=== PATIENT | male | born 1985 | race Two or more races ===

== ENCOUNTER 2021-08-27 09:30 | Outpatient (AMB) | payer BC, MEDICAID, SELFPAY ==
--- NOTE | 2021-08-27 09:30 | AM.PHNO ---
Nursing Note Dietitian Note: Appointment type: Palliative Care interdisciplinary team meeting follow up: Appointment: 08/27/21 9:30 am. Current stated weight: 222 lbs, reflect weight loss of 3 lbs x1 month. height: 6'7 . BMI:25.2 kg/mm, reflect normal weight status. Patient Myles reports he received all the nutrition information he needs from previous appointment. He has good appetite (normal). No N/V, No constipation or diarrhea. Patient continue taking Calcium and vitamin D. No nutrition concern at this time. Dietitian available prn. *CWC Office Visit complete CWC Offive Visit Complete CWC Visit Complete?: No
--- NOTE | 2021-08-27 09:30 | CWCCLINC_ITS ---
Review of Systems [facility] [place] Comments: Sensitivity/discomfort to bottom of feet Swelling/discomfort below knee Skin/Breast Comments: Peeling radiation burn Hair growing back Psych Comments: Irritation at times with children Exam Const General: cooperative and no acute distress Orientation: alert Limitations: language barrier Neuro General: patient alert Cognition: normal cognition Speech: speech normal Psych Mental Status: mental status grossly normal Mood: congruent mood Affect: normal affect Speech and Movement: speech clear Attitude: cooperative Thought Process: normal Thought Content: normal Judgment: judgment good Supplemental Info Assessment & Plan: 1. Pain. Mild to plantar surfaces and below knee at tumor site. Patient prefers not to treat. Monitor. Consider further evaluation and management of non- pharmacologic interventions. 2. Medication reconciliation. Complete. 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 Translation provided by AMAIRANI Mancini. Patient declined to participated with ELBA Wilson, during this encounter as all his nutritional support needs had been previously met by her. Patient stated he completed XRT last month and had a sunburn-like area to the skin of his leg which is now brown and peeling, but he was told by Dr. Masterson that this was normal. He is moisturizing with CeraVe. He is to start immunotherapy every 2 weeks x [address] Freitas in [place] starting Monday. He reports a 3/10 discomfort and sensitivity to the bottom of his feet when walking. He also report swelling and discomfort below the knee where the tumor is, exacerbated when standing. His hair is growing back. He reports normal appetite, energy and bowels. Objective Height: 2.01 m Weight: 100.698 kg Medication and Supplements Medication and Supplements: Vitamin D and Calcium Liquid 1 oz QD Patients Motivation/Goals Patients Motivation/Goals: Preference is to not take medications. Comments Additional Comments: PCP Dr. Perez Preferred Pharmacy [facility] Rx Coverage [facility] *CWC Office Visit complete CWC Offive Visit Complete CWC Visit Complete?: No
--- NOTE | 2021-08-27 09:36 | AM.PHNO ---
Documented by User: Katie Wolfe RD 08/27/21 09:54 Nursing Note Dietitian Note: Appointment type: Palliative Care interdisciplinary team meeting follow up: Appointment: 08/27/21 9:30 am. Current stated weight: 222 lbs, reflect weight loss of 3 lbs x1 month. height: 6'7 . BMI:25.2 kg/mm, reflect normal weight status. Patient Myles reports he received all the nutrition information he needs from previous appointment. He has good appetite (normal). No N/V, No constipation or diarrhea. Patient continue taking Calcium and vitamin D. No nutrition concern at this time. Dietitian available prn. *CWC Office Visit complete CWC Offive Visit Complete CWC Visit Complete?: No
[2021-08-27 09:50] VITALS: BMI 25.0
--- NOTE | 2021-08-27 09:50 | PR.OPPALCARP ---
Vital Signs 08/27/21 09:50 Height 2.01 m Height Method Stated Weight 100.698 kg Weight Measurement Method Stated by Patient BMI 25.0 Oxygen Delivery Method Room Air OP Palliative Care CWC Phone Triage Assessment Plan/Follow-up Plan: Continue to monitor; Call in 2 weeks to follow up on start of new chemo CWC Palliative Care Assessment Appointment Visit Date: 08/27/21 Inital Appointment: Follow up Appointment by phone IDT Team Members: Dietitian (Katie Wolfe (quick check in; patient has no needs at this time)), Doctor (Dr. Masterson), Nursing, Phramacist (Rose Zelaya) and [place] Brushing Machine Operator (Addis Cox) Language Spoken: Critical Power Technician Name: Addis oCx certified shipping manager Personal/Provider information List Name, Facility and location of PCP: Dr. 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 Current Treatment [facility] Current Treatment: IV Chemo (at [facility]) Current treatment schedule: on08/31/2021; Chemo on Tuesdays then return on Wednesdays then 2 week break Ambulation [facility] Ambulation: No assistance Pain Pain Present: Pain Reported Pain Intensity: 3 Pain Description: With Movement and Unable to Descibe (discomfort; sensitive to bottom of feet; uncomfortable under right knee) Neurological Neurological WNL: Yes HEENT HEENT WNL: Yes Cardiovascular Cardiovascular WNL: Yes Respiratory Respiratory WNL: Yes Gastrointestional Gastrointestinal: Yes Date of Last Bowel Movement: 08/26/21 Appetite: 100% Nausea: None Vomiting: None Genitourinary Genitourinary WNL: Yes Integumentary Integumentary WNL: No Skin Problems: Rash (on occasion on legs; uses Cerave) Skin Location: on legs Musculoskelatal Musculosketal WNL: No Symptoms: Joint Pain (leg pain due to tumor) Psych/Social Psych/Social WNL: Yes Behavior: Cooperative Mood: Normal Anxiety Level: None Depression Level: None Sleep: Quite a bit Energy: Quite a bit Judgement: Good Prognosis Prognosis: Good Goal of Care: Curative and Life Prolonging Palliative Performance Scale Palliative Performance Scale: Fully Ambulatory/May or may not be Symptomatic Issues: pain/discomfort; rash at times on leg; no major issues to report Plan: Continue to monitor; Call in 2 weeks to follow up on start of new chemo List Name, Facility and location of PCP: [facility] Prognosis: Good List Name, Facility and location of PCP: [facility] Prognosis: Good List Name, Facility and location of PCP: [facility] Diagnosis 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
--- NOTE | 2021-08-27 12:52 | CWCCLINC_ITS ---
[facility] Social Work Assessment Intake Visit Date: 08/27/21 Referral Source: Follow-Up Visit Structural Steel Painter: Yes (For Dietition, Pharmacist, and assessment manager. ) Name of Structural Steel Painter: Addis Cox LCSW List Name, Facility and location of PCP: Dr. 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 ) Patient housing status: House Living situation comments: Patient lives with his and children ages 8, 6, and 4. Support system: Good ADL's Getting dressed: Yes Personal Hygiene: Yes Feeding: Yes Ambulate: Yes Continence management: Yes Prepare meals: Yes Transportation: Yes supervisor residential: Yes Manage medications: Yes Manage finances: Yes Patient has the following @ home: None Ambulation ability: Ambulates independently Cognitive/Emotional Status Mental status: Alert (Patient was alert and oriented. ) Judgement: Good Emotional status: Normal Coping status: Coping well Learning needs: Motivational Additional comments: Assessed patient?s mood. Patient reported a good mood. Patient appeared to have no disturbances to his mood. Patient reported he does not think about his disease he just does what the doctors recommend and does what he needs to do to be better. Patient reported last results he received indicated that there was no progression of his cancer and no changes as well, which, was good to hear it has not progressed. Patient reported he could get irritable or be inpatient at times since he does have an 8, 6, and 4 year old but did not report anything major. Recommended he take a break and go into a room take Deep Breaths and count to 10 then go back. Patient reported he engages in cleaning his home, washing his cars, watches T.V., and goes out where there is small crowds to distract himself. He reported no SI and HI. Patient reported no need for community resources. Patient reporting no distressing symptoms, issues, or needs. Advanced Care planning Advacned care plan discussed: No Social Service Decision Making Status: Makes Own Decisions Primary Decision Maker: Sarojtriston Perry, Anticipated needs [place] Supervisor Patient Concerns: No Concerns
== END 2021-08-27 10:05 | disposition home or self-care (01) ==
LOC: HODCWC 09:40
PROVIDERS: Visit Provider Radiology Therapeutic Radiology
DX: Z51.5 Encounter for palliative care (principal)

== ENCOUNTER → 2025-05-20 | Outpatient (CLI) | payer BC, MEDICAID, SELFPAY ==
[2025-05-20 09:33] LABS: Collection Type, Urine Catheter
[2025-05-20 10:42] LABS: Basophils # (Auto) 0.0 Thou/mm3 (0.0-0.2); Basophils % (Auto) 0 % (0-2.5); Eosinophils # (Auto) 0.4 Thou/mm3 (0.0-0.5); Eosinophils % (Auto) 2 % (0-10); Hematocrit 42.2 % (41.0-53.0); Hemoglobin 14.2 g/dL (13.5-16.0); Immature Granulocytes Auto 0.24 Thou/mm3 (0.00-0.00); Lymphocytes # (Auto) 1.1 Thou/mm3 (1.0-4.8); Lymphocytes % (Auto) 7 % (10-50); Mean Corpuscular HGB Conc 33.6 g/dl (31.0-37.0); Mean Corpuscular Hemoglobin 32.9 pg (25.0-35.0); Mean Corpuscular Volume 98 fL (80-100); Monocytes # (Auto) 1.4 Thou/mm3 (0.0-0.8); Monocytes % (Auto) 9 % (0-12); Neutrophils # (Auto) 12.8 Thou/mm3 (1.8-7.7); Neutrophils % (Auto) 81 % (37-80); Nucleated Red Blood Cell # 0.00 Thou/mm3 (0.00-0.00); Nucleated Red Blood Cell % 0 /100 WBC (0); Platelet Count 168 Thou/mm3 (140-440); RDW Standard Deviation 46.8 fL (35.1-43.9); Red Blood Count 4.32 Miln/mm3 (4.50-5.90); White Blood Count 15.9 Thou/mm3 (3.8-10.6)
[2025-05-20 10:43] LABS: Bilirubin,Urine Negative (Negative); Blood,Urine Negative (Negative); Clarity,Urine Clear (Clear/Hazy); Color,Urine Lt-Yellow (Lt Yel-Yel); Glucose, Urine Negative (Negative); Ketones,Urine Negative (Negative); Leukocyte Esterase,Urine Negative (Negative); Nitrite,Urine Negative (Negative); PH,Urine 7.0 (5.0-7.0); Protein,Urine Negative (Neg - Trace); RBC,Urine 1 /hpf (0-3); Specific Gravity,Urine 1.016 (1.001-1.035); Squamous Epithelial Cell,Urine 1 /hpf (0-5); Urobilinogen,Urine Negative mg/dL (0.0-1.0); WBC,Urine 1 /hpf (0-5)
[2025-05-20 10:43] LABS: Glucose Estimated Average 108 mg/dL (80-131); Hemoglobin A1C 5.4 % Hgb (4.8-6.0)
[2025-05-20 10:50] LABS: Vitamin B12 1629 pg/mL (211-911); Vitamin D 25 Hydroxy Total 22.3 ng/mL (7.3-40.2)
[2025-05-20 10:54] LABS: Alanine Aminotransferase 57 U/L (10-49); Albumin, Serum 4.6 gm/dL (3.5-5.0); Albumin/Globulin Ratio 2.2 (1.2-2.2); Alkaline Phosphatase 195 U/L (46-116); Anion Gap 9 (7-16); Aspartate Amino Transferase 29 U/L (0-34); BUN/Creatinine Ratio 17 Ratio (12-20); Bilirubin,Total 0.6 mg/dL (0.3-1.2); Blood Urea Nitrogen 17 mg/dL (9-23); Calcium 10.0 mg/dL (8.3-10.6); Calcium (Corrected) 10.0 mg/dL (8.5-10.1); Carbon Dioxide 30.7 mMol/L (20.0-31.0); Cardiac Risk Estimate 4.9 RATIO (4.0-6.7); Chloride 101 mMol/L (98-107); Cholesterol 165 mg/dL (132-200); Creatinine (Component) 1.0 mg/dL (0.6-1.3); Globulin 2.1 gm/dL (2.3-3.5); Glucose 98 mg/dL (74-106); HDL Cholesterol 34 mg/dL (40-60); LDL Cholesterol,Calculated 106 mg/dL (0-130); Osmolality,Calculated 282 (275-295); Potassium 4.4 mMol/L (3.4-5.1); Sodium 141 mMol/L (136-145); Total Protein 6.7 gm/dL (5.7-8.2); Triglycerides 126 mg/dL (30-150); Uric Acid 7.6 mg/dL (3.7-9.2); eGFR > 60 See Note
[2025-05-20 10:58] LABS: Creatinine MALB Rnd Ur 74 mg/dL (30-125); Microalbumin, Random Urine < 3 mg/L (0-300)
== END | disposition home or self-care (01) ==
LOC: COPL 09:08
PROVIDERS: PCP Internal Medicine; Referring Provider Internal Medicine; Visit Provider Internal Medicine
DX: Z00.00 Encounter for general adult medical examination without abnormal findings (principal)
CPT/HCPCS: 36415; 80053; 80061; 81001; 82043; 82306; 82570; 82607; 83036; 84550; 85025